=== PATIENT | female | born 1970 | race Caucasian/White ===

== ENCOUNTER 2021-07-16 22:36 | Emergency (ER) | payer MEDICAID ==
[~2021-07-16] VITALS: Ht 152.4 cm; Wt 57.8 kg
[2021-07-16 23:23] VITALS: BP 148/79
[2021-07-17] MEDS ORDERED: INSULIN REGULAR, HUMAN 100 UNIT/ML VIAL SUBQ ONE (00:15)
[2021-07-17] MEDS ORDERED: cephALEXin 500 MG CAP PO ONE (00:15)
[2021-07-17] MEDS ORDERED: ACETAMINOPHEN 325 MG TAB PO ONE (00:20)
[2021-07-17 00:47] LABS: CARBON DIOXIDE 28.1 mmol/L (21-32); CREATININE 0.6 mg/dL (0.6-1.3); POTASSIUM 4.1 mmol/L (3.5-5.1)
--- NOTE | 2021-07-17 01:06 | NUR ---
patient moved to chair b
--- NOTE | 2021-07-17 01:21 | NUR ---
medicated patient per ERMD orders
[2021-07-17] MEDS ORDERED: CEPH-588 PO (01:59)
[2021-07-17] MEDS ORDERED: FLUC150T PO (01:59)
[2021-07-17 02:10] VITALS: BP 148/79
== END 2021-07-17 01:21 | disposition home or self-care (01) ==
LOC: MED 22:36
DX: B35.4 Tinea corporis (principal); L03.116 Cellulitis of left lower limb; E11.9 Type 2 diabetes mellitus without complications
CPT/HCPCS: 36415; 80048; 82948; 96372; 99283; J1815

== ENCOUNTER 2022-08-14 09:47 | Emergency (ER) | payer MEDICAID, OTHER ==
[~2022-08-14] VITALS: Ht 152.4 cm; Wt 59.6 kg
[~2022-08-14 09:47] MED LIST: CEPH-588 PO; FLUC150T PO
[2022-08-14 10:01] VITALS: BP 156/107
--- NOTE | 2022-08-14 10:06 | NUR ---
PT AMB TO BED 6
[2022-08-14] MEDS ORDERED: NACL 0.9% 1,000 ML IV ONE (10:15)
--- NOTE | 2022-08-14 10:44 | NUR ---
IV started, bloodwork obtained, handed bloodwork to CPT Lidia at bedside.
[2022-08-14 10:58] LABS: APPEARANCE,URINE CLEAR (CLEAR); BILIRUBIN,URINE NEGATIVE (NEGATIVE); BLOOD, URINE NEGATIVE (NEGATIVE); COLOR,URINE YELLOW (YELLOW); LEUKOCYTE ESTERASE ,URINE SMALL (NEGATIVE); NITRITE, URINE NEGATIVE (NEGATIVE); UGLUCOSE NEGATIVE (NEGATIVE)
[2022-08-14 11:10] LABS: BASOPHILS % (AUTO) 0.4 % (0.0-2.0); EOSINOPHILS % (AUTO) 0.2 % (0.0-4.0); HEMATOCRIT 41.1 % (36-48); HEMOGLOBIN 14.1 g/dL (12.0-16.0); LYMPHOCYTES # (AUTO) 1.9 K/uL (2.5-16.5); LYMPHOCYTES % (AUTO) 20.2 % (20.5-51.1); MEAN CORPUSCULAR HEMOGLOBIN 31 pg (27-31); MEAN CORPUSCULAR HGB CONC 34 g/dL (33-37); MEAN CORPUSCULAR VOLUME 91.2 fL (80-94); MONOCYTES # (AUTO) 0.4 K/uL (0.8-1.0); MONOCYTES % (AUTO) 4.7 % (1.7-9.3); NEUTROPHILS % (AUTO) 74.5 % (42.2-75.2); PLATELET COUNT (AUTO) 171 K/uL (140-450); RED CELL DISTRIBUTION WIDTH 12.8 % (11.6-13.7); WHITE BLOOD COUNT (AUTO) 9.3 K/uL (4.8-10.8)
[2022-08-14 11:22] LABS: ALBUMIN 4.6 g/dL (3.4-5.0); ANION GAP 16.5 (8-16); CARBON DIOXIDE 26.6 mmol/L (21-32); CREATININE 0.5 mg/dL (0.6-1.3); POTASSIUM 4.1 mmol/L (3.5-5.1); TOTAL BILIRUBIN 0.4 mg/dL (0.0-1.0)
[2022-08-14 11:23] LABS: RBC,URINE 0-5 /HPF (0-5)
[2022-08-14 11:24] LABS: OTHER CASTS, URINE None Seen /LPF (None Seen)
[2022-08-14] MEDS ORDERED: CEPH-588 PO (11:41)
[2022-08-14] MEDS ORDERED: cephALEXin 500 MG CAP PO ONE (12:35)
[2022-08-14 12:46] VITALS: BP 131/79
--- NOTE | 2022-08-14 12:46 | NUR ---
Patient discharged with v/s stable. Written and verbal after care instructions given. Patient alert, oriented and verbalized understanding of instructions. Ambulatory with steady gait. All questions addressed prior to discharge. ID band removed. Patient advised to follow up with PMD. Rx of Keflex given. Opportunity to ask questions provided and answered.
--- NOTE | 2022-08-14 12:47 | NUR ---
The patient's care was reviewed and supervised by Sahrri Ortega, RN, RN.
== END 2022-08-14 12:46 | disposition home or self-care (01) ==
LOC: MED 09:47
DX: N39.0 Urinary tract infection, site not specified (principal); K52.9 Noninfective gastroenteritis and colitis, unspecified; R11.2 Nausea with vomiting, unspecified; E11.9 Type 2 diabetes mellitus without complications; I10 Essential (primary) hypertension; Z79.899 Other long term (current) drug therapy
CPT/HCPCS: 36415; 80053; 81001; 82150; 83690; 85025; 87086; 96360; 99283; J7030

== ENCOUNTER 2023-04-16 19:08 | Emergency (ER) | payer OTHER ==
[~2023-04-16] VITALS: Ht 152.4 cm; Wt 59.0 kg
[2023-04-16 19:52] VITALS: BP 172/87; PULSE 76; RESP 16; TEMP 97.4; O2SAT 98
[2023-04-16] MEDS ORDERED: ACETAMINOPHEN EXTRA STRENGTH 500 MG TAB PO ONE (21:55)
[2023-04-16] MEDS ORDERED: KETOROLAC 30 MG/ML VIAL IM ONE (21:55)
[2023-04-16] MEDS ORDERED: IBUP-1842 PO (21:56)
[2023-04-16] MEDS ORDERED: BACI-418 TP (21:57)
[2023-04-16] MEDS ORDERED: BACITRACIN OINT 500 UNITS/GM PKT TP ONE (22:00)
[2023-04-16] MEDS ORDERED: ACETAMINOPHEN 325 MG TAB ONE (22:12)
[2023-04-16 22:40] VITALS: BP 148/79; PULSE 80; RESP 17; TEMP 98; O2SAT 98
== END 2023-04-16 22:40 | disposition home or self-care (01) ==
LOC: MED 19:08
DX: T23.272A Burn of second degree of left wrist, initial encounter (principal); E11.9 Type 2 diabetes mellitus without complications; I10 Essential (primary) hypertension; Z79.899 Other long term (current) drug therapy; Z79.1 Long term (current) use of non-steroidal anti-inflammatories (NSAID); Z79.2 Long term (current) use of antibiotics
CPT/HCPCS: 16020; 90471; 90715; 96372; 99284; J1885